=== PATIENT | male | born 1965 | race Two or more races ===

== ENCOUNTER → 2020-04-11 15:50 | Outpatient (CLI) | payer MEDICAID, SELFPAY ==
[2020-03-02 14:55] VITALS: BMI 42.2
--- NOTE | 2020-04-11 15:50 | MRI_ITS ---
STUDY: MRI LUMBAR SPINE WITHOUT CONTRAST REASON FOR EXAM: Male, 54 years old. low back pain/trauma, some left leg sciatic pain TECHNIQUE: Standardized fat and water weighted pulse sequences were obtained in the sagittal and axial planes. COMPARISON: Lumbar spine x-rays 03/02/2020 FINDINGS: T12-L1: Minor chronic wedging of superior endplate of L1. Normal disc height, hydration and minimal annular bulge.. Normal bilateral facet joints. Normal central canal and bilateral lateral recesses. Normal bilateral intervertebral neural foramina. Normal lumbar lordosis. There is no substantial scoliosis. Normal conus medullaris that terminates at T12-L1 L1-2: Normal endplates. Narrowed disc height, normal hydration and minimal annular bulge.. Normal bilateral facet joints. Normal central canal and bilateral lateral recesses. Normal bilateral intervertebral neural foramina. L2-3: Minor endplate spurring narrowed disc height, desiccation and normal morphology normal bilateral facet joints. Normal central canal and bilateral lateral recesses. Normal bilateral intervertebral neural foramina. L3-4: Grade 1 retrolisthesis Normal endplates. Normal disc height, desiccation and minimal bulging disc osteophyte complex normal bilateral facet joints. Normal central canal and bilateral lateral recesses. Moderate bilateral neuroforaminal stenosis exaggerated by shortened pedicles.. L4-5: Normal endplates. Normal disc height, desiccation and tiny left foraminal disc protrusion.. Normal bilateral facet joints. Normal central canal and bilateral lateral recesses. Mild right neuroforaminal encroachment and moderate narrowing on the left exaggerated by shortened pedicles. L5-S1: Degenerative endplate changes.. Normal disc height, desiccation and minor annular bulge.. Facet arthropathy and thickening of ligamenta flava.. Normal central canal and bilateral lateral recesses. Moderate to severe bilateral neuroforaminal stenosis exaggerated by shortened pedicles. Normal visualized sacral ala. Normal visualized paraspinous soft tissue structures. Findings are similar to that seen on prior study given differences in imaging techniques. MRI/Spine Lumbar (Routine) IMPRESSION: No evidence for acute fracture or other significant bony pathology Multilevel disc degeneration and mild stenosis secondary to disc disease and bony hypertrophy exaggerated by shortened pedicles. Electronically Signed: Cooper Smith MD at 21:50 EST , Service support ,
== END ==
PROVIDERS: PCP Family Medicine; Referring Provider Orthopaedic Surgery; Visit Provider Orthopaedic Surgery
DX: M54.5 Low back pain (principal)
CPT/HCPCS: 72148